=== PATIENT | female | born 1990 | race African-American/Black ===

== ENCOUNTER → 2017-07-14 | Outpatient (CLI) | payer OTHER ==
--- NOTE | 2017-07-14 15:42 | KCIC ---
MR of the musculoskeletal pelvis HISTORY: Increased pain over the anterior crest through the lower pelvis for 6 years, intermittently. TECHNIQUE: Large [id number] multiplanar scans obtained through the musculoskeletal pelvis. FINDINGS: No evidence of acute fracture. No bone destruction. No femoral head osteonecrosis. No significant joint effusion. No para labral cyst. The sacroiliac joints appear intact. Major tendon attachments are intact. No evidence of normal soft tissue fluid collection or concerning edema. The lumbosacral junction is barely visualized, demonstrating a mild disc bulge. IMPRESSION: No evidence of acute musculoskeletal abnormality. Electronically signed by: Sachin Duron MD (07/14/2017 3:38 PM) [id number]
== END | disposition home or self-care (01) ==
LOC: KCIC MRI 13:57
PROVIDERS: ATTEND Nurse Practitioner
DX: R10.2 Pelvic and perineal pain (principal)
CPT/HCPCS: 72195